=== PATIENT | male | born 1985 | race Caucasian/White ===

== ENCOUNTER 2018-09-08 13:44 | Emergency (ER) | payer SELFPAY ==
[~2018-09-08] VITALS: Ht 188 cm; Wt 74.8 kg
[2018-09-08 15:03] VITALS: BP 129/78
== END 2018-09-08 16:02 | disposition home or self-care (01) ==
LOC: ER 13:44
DX: S06.0X0A Concussion without loss of consciousness, initial encounter (principal); S13.4XXA Sprain of ligaments of cervical spine, initial encounter; M25.561 Pain in right knee; V28.4XXA Motorcycle driver injured in noncollision transport accident in traffic accident, initial encounter; Y93.89 Activity, other specified; Y99.8 Other external cause status; Y92.410 Unspecified street and highway as the place of occurrence of the external cause
CPT/HCPCS: 70450; 72125; 73502; 73562